=== PATIENT | male | born 1965 | race Caucasian/White ===

== ENCOUNTER 2022-07-22 15:49 | Inpatient (IN) | payer SELFPAY ==
[~2022-07-22] VITALS: Ht 172.7 cm; Wt 62.1 kg
[2022-07-22 19:24] LABS: EOSINOPHILS % 3.4 % (0.0-5.0); HEMATOCRIT. 22.7 % (42.0-52.0); HEMOGLOBIN. 7.7 g/dL (14.0-18.0); MEAN CORPUSCULAR VOLUME 90.9 fL (80.0-94.0); MEAN PLATELET VOLUME 8.5 fl (7.4-10.4); MONOCYTES % 7.5 % (2.0-8.0); NEUTROPHILS % 77.1 % (40.0-76.0); PLATELET 288 x1000/uL (130-400); RED CELL DISTRIBUTION WIDTH 14.9 % (11.6-14.6)
[2022-07-22 19:34] LABS: PROTHROMBIN TIME 10.6 sec (9.6-11.0)
[2022-07-22 19:53] LABS: CHLORIDE 116 mEq/L (98-107)
[2022-07-22 20:44] LABS: CLARITY URINE CLEAR (CLEAR); COLOR URINE YELLOW (YELLOW); KETONES URINE NEGATIVE (NEGATIVE); LEUKOCYTE ESTERASE URINE NEGATIVE (NEGATIVE); NITRITE URINE NEGATIVE (NEGATIVE); OCCULT BLOOD URINE 1+ (NEGATIVE); PH URINE 5.5 (4.5-8.0); PROTEIN URINE 4+ (NEGATIVE); SPECIFIC GRAVITY URINE 1.018 (1.005-1.030); UROBILINOGEN URINE 0.2 E.U./dL (0.2-1.0)
[2022-07-22] MEDS ORDERED: CEFTRIAXONE 1 G PREMIX 50 ML IV NR (20:45)
[2022-07-22] MEDS ORDERED: AZITHROMYCIN 500MG/250ML 250 ML IV NR (20:45)
[2022-07-22] MEDS ORDERED: SODIUM CHLORIDE 0.9% 1,000 ML IV ONE (21:45)
[2022-07-23] MEDS ORDERED: MAGNESIUM/ALUMINUM HYDROXIDE/SIMETHICONE 30ML UDC PO PRN (01:45)
[2022-07-23] MEDS ORDERED: GUAIFENESIN 200MG/10ML SUGAR FREE UDC PO PRN (01:45)
[2022-07-23] MEDS ORDERED: DEXTROSE 50% WATER 50ML SYRINGE IV PRN (01:45)
[2022-07-23] MEDS ORDERED: DOCUSATE SODIUM 100MG CAPSULE PO PRN (01:45)
[2022-07-23] MEDS ORDERED: IPRATROPIUM/ALBUTEROL 0.5-3(2.5)MG/3ML NEB HHN PRN (01:45)
[2022-07-23] MEDS ORDERED: ONDANSETRON HCL 4MG/2ML INJ IV PRN (01:45)
[2022-07-23] MEDS ORDERED: HYDROCODONE/ACETAMINOPHEN 5/325MG TABLET PO PRN (01:45)
[2022-07-23] MEDS ORDERED: CLONIDINE 0.1MG TABLET PO PRN (01:45)
[2022-07-23] MEDS ORDERED: SODIUM POLYSTYRENE SULFONATE 15 G/60 ML BOT PO NR (01:45)
[2022-07-23] MEDS ORDERED: ACETAMINOPHEN 325MG TABLET PO PRN ×2 (01:45)
[2022-07-23] MEDS ORDERED: NALOXONE HCL 0.4MG/ML VIAL IV PRN (02:15)
[2022-07-23 05:30] VITALS: BP 173/96
[2022-07-23] MEDS: BLOOD SUGAR DIAGNOSTIC STRIP TEST SCH ×4 (07:34→21:00)
[2022-07-23] MEDS: INSULIN LISPRO 100 UNITS/ML SUBCUT SCH ×4 (07:40→21:47)
[2022-07-23 08:00] VITALS: BP_SYST 117; BP_SYST 172; BP_DIAS 100; BP_DIAS 83
[2022-07-23] MEDS ORDERED: CEFTRIAXONE 1 G PREMIX 50 ML IV SCH (08:00)
[2022-07-23 08:29] LABS: CHLORIDE 119 mEq/L (98-107)
[2022-07-23 08:39] LABS: PHOSPHORUS 3.8 mg/dL (2.5-4.9)
[2022-07-23] MEDS: AMLODIPINE 10MG TABLET PO SCH (08:58)
[2022-07-23] MEDS: FUROSEMIDE 40MG/4ML VIAL IVP SCH (08:58)
[2022-07-23] MEDS: ENOXAPARIN 30MG/0.3ML SYR SUBCUT SCH (08:58)
[2022-07-23] MEDS: ASPIRIN 81MG EC TABLET PO SCH (08:58)
[2022-07-23 09:21] LABS: T4 FREE 1.03 ng/dL (0.76-1.46)
[2022-07-23 09:47] LABS: VITAMIN B12 SERUM 510 pg/mL (211-911)
[2022-07-23 11:00] LABS: BG BASE EXCESS -6.9 mmol/L (-2.0-2.0); BG DEOXYHEMOGLOBIN 6.2 % (0.0-5.0); BG FRACTION INSPIRED OXYGEN 21; BG HCO3 ACT 18.1 mmol/L (22.0-26.0); BG METHEMOGLOBIN 0.3 % (0.0-1.5); BG OXYGEN SATURATION 93.8 % (92.0-98.5); BG OXYHEMOGLOBIN 93.5 % (94.0-97.0); BG PCO2 33.9 mmHg (35.0-45.0); BG PH 7.345 (7.350-7.450); BG PO2 72.2 mmHg (75.0-100.0); BG SAMPLE SITE LEFT BRACHIAL; BG TOTAL HEMOGLOBIN 7.6 g/dL (12.0-18.0); BG VENT MODE ROOM AIR
[2022-07-23 11:20] LABS: FERRITIN 30 ng/mL (22-322)
[2022-07-23 11:54] LABS: HEPATITIS B SURFACE ANTIGEN NEGATIVE
[2022-07-23 12:30] VITALS: BP 159/93
[2022-07-23 13:30] LABS: BASOPHILS % 0.7 % (0.0-2.0); EOSINOPHILS % 3.1 % (0.0-5.0); HEMATOCRIT. 21.8 % (42.0-52.0); HEMOGLOBIN. 7.2 g/dL (14.0-18.0); LYMPHOCYTES % 13.3 % (20.0-50.0); MEAN CORPUSCULAR VOLUME 91.3 fL (80.0-94.0); MEAN PLATELET VOLUME 8.9 fl (7.4-10.4); MONOCYTES % 8.7 % (2.0-8.0); NEUTROPHILS % 74.2 % (40.0-76.0); PLATELET 285 x1000/uL (130-400); RED BLOOD CELL COUNT 2.39 mill/uL (4.7-6.1); RED CELL DISTRIBUTION WIDTH 14.7 % (11.6-14.6)
[2022-07-23 14:11] LABS: CREATINE KINASE MB FRACTION 4.1 ng/mL (0.5-3.6)
[2022-07-23 16:30] VITALS: BP 161/92
[2022-07-23 19:46] LABS: CREATINE KINASE MB FRACTION 4.3 ng/mL (0.5-3.6)
[2022-07-23 20:00] VITALS: BP 147/79
[2022-07-23 20:54] LABS: CHLORIDE 116 mEq/L (98-107)
[2022-07-23] MEDS ORDERED: EPOETIN ALFA-EPBX 4,000 UNIT/ML VIAL SUBCUT NR (21:00)
[2022-07-23] MEDS ORDERED: MAGNESIUM 2 G PREMIX 50 ML IV NR (21:30)
[2022-07-23] MEDS: FAMOTIDINE 20MG TABLET PO SCH (21:43)
[2022-07-23] MEDS: CEFTRIAXONE 1,000 MG in DEXTROSE 5% WATER 50 ML IV SCH (21:45)
[2022-07-23] MEDS: AZITHROMYCIN 500 MG in DEXT 5% WATER 250 ML IV SCH (21:46)
[2022-07-24] VITALS (10 sets, daily range): BP systolic 137–153; BP diastolic 74–92
[2022-07-24] MEDS: INSULIN LISPRO 100 UNITS/ML SUBCUT SCH ×4 (07:40→20:41)
[2022-07-24] MEDS: BLOOD SUGAR DIAGNOSTIC STRIP TEST SCH ×4 (07:48→20:40)
[2022-07-24 07:54] LABS: BASOPHILS % 1.3 % (0.0-2.0); EOSINOPHILS % 4.5 % (0.0-5.0); LYMPHOCYTES % 15.4 % (20.0-50.0); MEAN CORPUSCULAR HEMOGLOBIN 29.5 pg (28.0-32.0); MEAN CORPUSCULAR VOLUME 90.9 fL (80.0-94.0); MEAN PLATELET VOLUME 8.6 fl (7.4-10.4); MONOCYTES % 7.6 % (2.0-8.0); NEUTROPHILS % 71.2 % (40.0-76.0); PLATELET 268 x1000/uL (130-400); RED BLOOD CELL COUNT 2.15 mill/uL (4.7-6.1); RED CELL DISTRIBUTION WIDTH 14.9 % (11.6-14.6)
[2022-07-24 08:10] LABS: HEMATOCRIT. 19.5 % (42.0-52.0); HEMOGLOBIN. 6.3 g/dL (14.0-18.0)
[2022-07-24] MEDS: ENOXAPARIN 30MG/0.3ML SYR SUBCUT SCH (09:00)
[2022-07-24] MEDS: ASPIRIN 81MG EC TABLET PO SCH (09:25)
[2022-07-24] MEDS: AMLODIPINE 10MG TABLET PO SCH (09:26)
[2022-07-24] MEDS: FUROSEMIDE 40MG/4ML VIAL IVP SCH (09:28)
[2022-07-24 09:29] LABS: CHLORIDE 116 mEq/L (98-107)
[2022-07-24 09:42] LABS: HDL CHOLESTEROL 34 mg/dL (40-59); LDL CHOLESTEROL 141 mg/dL (5-100); PHOSPHORUS 4.9 mg/dL (2.5-4.9)
[2022-07-24] MEDS: IRON SUCROSE COMPLEX 100 MG/5 ML ML IV SCH (11:19)
[2022-07-24] MEDS: CITRIC ACID/SODIUM CITRATE SOLN 15ML UDC PO SCH ×3 (11:47→17:24)
[2022-07-24 18:08] LABS: HEMATOCRIT 26.7 % (42.0-52.0); HEMOGLOBIN 8.8 g/dL (14.0-18.0)
[2022-07-24] MEDS: CEFTRIAXONE 1,000 MG in DEXTROSE 5% WATER 50 ML IV SCH (20:15)
[2022-07-24] MEDS: FUROSEMIDE 100MG/10ML VIAL IVP SCH (20:40)
[2022-07-24] MEDS: FAMOTIDINE 20MG TABLET PO SCH (20:40)
[2022-07-24] MEDS: AZITHROMYCIN 500 MG in DEXT 5% WATER 250 ML IV SCH (20:42)
[2022-07-24] MEDS ORDERED: CITR473S PO (21:02)
[2022-07-24] MEDS ORDERED: AMLO10TA80 PO (21:02)
[2022-07-25] VITALS: BP 118/66
[2022-07-25 04:00] VITALS: BP 147/66
[2022-07-25] MEDS: BLOOD SUGAR DIAGNOSTIC STRIP TEST SCH ×4 (06:20→20:33)
[2022-07-25] MEDS: INSULIN LISPRO 100 UNITS/ML SUBCUT SCH ×4 (06:20→20:33)
[2022-07-25 07:39] LABS: EOSINOPHILS % 4.4 % (0.0-5.0); HEMATOCRIT. 23.4 % (42.0-52.0); HEMOGLOBIN. 7.7 g/dL (14.0-18.0); LYMPHOCYTES % 14.6 % (20.0-50.0); MEAN CORPUSCULAR HEMOGLOBIN 29.8 pg (28.0-32.0); MEAN CORPUSCULAR VOLUME 90.2 fL (80.0-94.0); MEAN PLATELET VOLUME 9.1 fl (7.4-10.4); MONOCYTES % 9.9 % (2.0-8.0); NEUTROPHILS % 70.1 % (40.0-76.0); PLATELET 270 x1000/uL (130-400); RED BLOOD CELL COUNT 2.59 mill/uL (4.7-6.1); RED CELL DISTRIBUTION WIDTH 14.8 % (11.6-14.6)
[2022-07-25 08:00] VITALS: BP 146/82
[2022-07-25 08:00] LABS: CHLORIDE 112 mEq/L (98-107)
[2022-07-25 08:29] LABS: PHOSPHORUS 5.6 mg/dL (2.5-4.9)
[2022-07-25] MEDS: AMLODIPINE 10MG TABLET PO SCH (08:33)
[2022-07-25] MEDS: CITRIC ACID/SODIUM CITRATE SOLN 15ML UDC PO SCH ×3 (08:33→17:36)
[2022-07-25] MEDS: FUROSEMIDE 100MG/10ML VIAL IVP SCH (08:33)
[2022-07-25 08:47] LABS: HAPTOGLOBIN 252 mg/dL (30-200)
[2022-07-25 09:06] LABS: IMMUNOGLOBULIN A 220 mg/dL (90-386); IMMUNOGLOBULIN G 730 mg/dL (603-1613); IMMUNOGLOBULIN M 38 mg/dL (20-172)
[2022-07-25] MEDS: IRON SUCROSE COMPLEX 100 MG/5 ML ML IV SCH (10:29)
[2022-07-25] MEDS: OMEPRAZOLE 20MG CAPSULE EXTENDED RELEASE PO SCH ×2 (11:01→20:32)
[2022-07-25 12:00] VITALS: BP 140/80
[2022-07-25] MEDS: SUCRALFATE 1 G/10 ML UDC PO SCH ×3 (12:19→20:31)
[2022-07-25 16:00] VITALS: BP 144/81
[2022-07-25 17:55] LABS: HEMATOCRIT 27.8 % (42.0-52.0); HEMOGLOBIN 9.3 g/dL (14.0-18.0)
[2022-07-25 20:00] VITALS: BP 138/77
[2022-07-25] MEDS: CEFTRIAXONE 1,000 MG in DEXTROSE 5% WATER 50 ML IV SCH (20:32)
[2022-07-25] MEDS: AZITHROMYCIN 500 MG in DEXT 5% WATER 250 ML IV SCH (21:22)
[2022-07-26] VITALS: BP 125/75
[2022-07-26 04:00] VITALS: BP 135/78
[2022-07-26] MEDS: SUCRALFATE 1 G/10 ML UDC PO SCH ×2 (06:12→11:53)
[2022-07-26] MEDS: OMEPRAZOLE 20MG CAPSULE EXTENDED RELEASE PO SCH (06:12)
[2022-07-26] MEDS: BLOOD SUGAR DIAGNOSTIC STRIP TEST SCH ×2 (06:27→11:54)
[2022-07-26] MEDS: INSULIN LISPRO 100 UNITS/ML SUBCUT SCH ×2 (06:27→11:54)
[2022-07-26 07:54] LABS: BASOPHILS % 0.7 % (0.0-2.0); EOSINOPHILS % 3.9 % (0.0-5.0); HEMATOCRIT. 23.2 % (42.0-52.0); HEMOGLOBIN. 7.7 g/dL (14.0-18.0); LYMPHOCYTES % 14.2 % (20.0-50.0); MEAN CORPUSCULAR HEMOGLOBIN 29.7 pg (28.0-32.0); MEAN CORPUSCULAR VOLUME 89.2 fL (80.0-94.0); MONOCYTES % 9.1 % (2.0-8.0); NEUTROPHILS % 72.1 % (40.0-76.0); PLATELET 281 x1000/uL (130-400); RED CELL DISTRIBUTION WIDTH 14.7 % (11.6-14.6)
[2022-07-26 08:00] VITALS: BP 142/82
[2022-07-26] MEDS: CITRIC ACID/SODIUM CITRATE SOLN 15ML UDC PO SCH ×2 (08:13→11:55)
[2022-07-26] MEDS: AMLODIPINE 10MG TABLET PO SCH (08:13)
[2022-07-26 08:35] LABS: CHLORIDE 110 mEq/L (98-107)
[2022-07-26 08:46] LABS: PHOSPHORUS 5.1 mg/dL (2.5-4.9)
[2022-07-26] MEDS ORDERED: FUROSEMIDE 100MG/10ML VIAL IVP SCH (09:00)
[2022-07-26] MEDS: IRON SUCROSE COMPLEX 100 MG/5 ML ML IV SCH (11:34)
[2022-07-26 11:39] VITALS: BP 131/72
[2022-07-26] MEDS ORDERED: FURO-151 MT (14:09)
[2022-07-26] MEDS ORDERED: FERR236T3 MT (14:12)
[2022-07-26 14:48] VITALS: BP 130/70
[2022-07-28 14:07] LABS: ATYPICAL P-ANCA <1:20 titer (Neg:<1:20); CYTOPLASMIC C-ANCA <1:20 titer (Neg:<1:20); PERINUCLEAR P-ANCA <1:20 titer (Neg:<1:20)
== END 2022-07-26 15:24 | disposition home or self-care (01) | DRG 663 ==
LOC: ER 15:49 → MICUSO 22:29 → 8WST 07-23 05:14
PROVIDERS: ADMIT Family Medicine; ATTEND Family Medicine
PROC: 30233N1 Transfusion of Nonautologous Red Blood Cells into Peripheral Vein, Percutaneous Approach (ICD-10-PCS; principal; 2022-07-24)
DX: D50.9 Iron deficiency anemia, unspecified (principal); N17.0 Acute kidney failure with tubular necrosis; J96.90 Respiratory failure, unspecified, unspecified whether with hypoxia or hypercapnia; I21.4 Non-ST elevation (NSTEMI) myocardial infarction; E43 Unspecified severe protein-calorie malnutrition; E87.20 Acidosis, unspecified; J18.9 Pneumonia, unspecified organism; D62 Acute posthemorrhagic anemia; I13.11 Hypertensive heart and chronic kidney disease without heart failure, with stage 5 chronic kidney disease, or end stage renal disease; R18.8 Other ascites; N18.5 Chronic kidney disease, stage 5; E11.22 Type 2 diabetes mellitus with diabetic chronic kidney disease; E11.65 Type 2 diabetes mellitus with hyperglycemia; E87.5 Hyperkalemia; K76.1 Chronic passive congestion of liver; Z20.822 Contact with and (suspected) exposure to COVID-19; E83.42 Hypomagnesemia; R74.01 Elevation of levels of liver transaminase levels; E78.1 Pure hyperglyceridemia; E78.5 Hyperlipidemia, unspecified; K80.20 Calculus of gallbladder without cholecystitis without obstruction; R59.0 Localized enlarged lymph nodes; Z82.49 Family history of ischemic heart disease and other diseases of the circulatory system; Z83.3 Family history of diabetes mellitus; Z87.891 Personal history of nicotine dependence; Z68.20 Body mass index [BMI] 20.0-20.9, adult
CPT/HCPCS: 36415; 36600; 71045; 71250; 76700; 80048; 80053; 80061; 80076; 81003; 82248; 82270; 82375; 82378; 82550; 82553; 82607; 82728; 82746; 82784; 82805; 82962; 83010; 83036; 83520; 83540; 83550; 83615; 83735; 84100; 84439; 84443; 84484; 85014; 85018; 85025; 85044; 85379; 86160; 86256; 86334; 86705; 86709; 86803; 86850; 86900; 86920; 87340; 87426; 93005; 93306; 93970; 99285; J0456; J0696; J0885; J1650; J1815; J1940; J3475; J7060; P9016